=== PATIENT | male | born 1985 | race Two or more races ===

== ENCOUNTER 2019-12-07 15:45 | Inpatient (IN) | payer MEDICAID ==
[~2019-12-07] VITALS: Ht 175.3 cm; Wt 100.8 kg
[~2019-12-07 15:45] MED LIST: CALCITROL PO; CARV3 PO; CINA30 PO; CLON-592 PO; DOCU250C21 PO; DOXY150T5 PO; ERGO50CA PO; LEVO50 PO; OMEP20 PO; ONDA-104 PO; RISP3TAB13 PO; SERT100T12 PO; SUCR500T PO; TRAZ-257 PO
[2019-12-07] MEDS ORDERED: QUET25TA PO (18:38)
[2019-12-07] MEDS ORDERED: RISP0.5T20 PO (18:38)
[2019-12-07] MEDS ORDERED: CLON-592 PO (18:38)
[2019-12-07 18:41] LABS: BASOPHILS % (AUTO) 0.4 % (0.0-2.0); EOSINOPHILS % (AUTO) 1.2 % (1.0-6.0); HEMATOCRIT 31.4 % (41-53); HEMOGLOBIN 10.5 g/dL (13.5-17.5); LYMPHOCYTES # (AUTO) 1.3 K/uL (1.0-4.8); LYMPHOCYTES % (AUTO) 23.2 % (22.0-44.0); MEAN CORPUSCULAR HEMOGLOBIN 37.4 pg (26.0-34.0); MEAN CORPUSCULAR HGB CONC 33.4 G/dL (31.0-37.0); MEAN CORPUSCULAR VOLUME 112 fL (80-100); MONOCYTES # (AUTO) 0.6 K/uL (0.1-1.0); MONOCYTES % (AUTO) 10.4 % (2.0-9.0); NEUTROPHILS # (AUTO) 3.6 K/uL (1.8-7.7); NEUTROPHILS % (AUTO) 64.8 % (40.0-70.0); PLATELET COUNT (AUTO) 214 K/uL (150-450); RED BLOOD CELL COUNT(AUTO) 2.79 MIL/uL (4.50-5.90); RED CELL DISTRIBUTION WIDTH 17.9 % (11.5-14.5)
[2019-12-07 19:34] LABS: COVID AG,FIA SOURCE NASOPHARYNGEAL
[2019-12-07 19:50] LABS: ANION GAP 11 mmol/L (8-16); CALCIUM, TOTAL 10.2 mg/dL (8.8-10.5); CARBON DIOXIDE 31 mmol/L (22-29); CHLORIDE 102 mmol/L (98-107); CREATININE 10.56 mg/dL (0.60-1.30); GLOMERULAR FILTR. RATE CALC 6 mL/min (>60); GLUCOSE,RANDOM 99 mg/dL (70-110); POTASSIUM 4.8 mmol/L (3.5-5.1); SODIUM SERUM 144 mmol/L (136-145); UREA NITROGEN, BLOOD 37 mg/dL (7-18)
[2019-12-07 19:58] LABS: ALANINE AMINOTRANSFERASE 44 U/L (12-78); ALKALINE PHOSPHATASE 116 U/L (46-116); ASPARTATE AMINOTRANSFERASE 29 U/L (15-37); BILIRUBIN,TOTAL 0.4 mg/dL (0.1-1.0)
[2019-12-07] MEDS ORDERED: QUEtiapine FUMARATE 100 MG TABLET PO PRN (22:00)
[2019-12-07] MEDS ORDERED: GuaiFENesin/D-METHORPHAN [SUGAR-FREE] 200-20MG/10 ML SYRUP UDCUP PO PRN (22:00)
[2019-12-07] MEDS ORDERED: MAGNESIUM HYDROXIDE SUSPENSION 30 ML UDCUP PO PRN (22:00)
[2019-12-07] MEDS ORDERED: LOPERAMIDE HCL 2 MG CAPSULE PO PRN (22:00)
[2019-12-07] MEDS ORDERED: TUBERCULIN, PURIFIED PROTEIN DERIVATIVE 5 TU/0.1 ML SYRINGE ID ONE (22:00)
[2019-12-07] MEDS ORDERED: ACETAMINOPHEN 325 MG TABLET PO PRN (22:00)
[2019-12-07] MEDS ORDERED: HydrOXYzine PAMOATE 50 MG CAPSULE PO PRN (22:00)
[2019-12-07] MEDS ORDERED: MAG HYDROX/AL HYDROX/SIMETH ES 30 ML SUSPENSION UDCUP PO PRN (22:00)
[2019-12-07] MEDS ORDERED: PROMETHAZINE HCL 25 MG TABLET PO PRN (22:00)
[2019-12-07] MEDS ORDERED: ZOLPIDEM TARTRATE 10 MG TABLET PO PRN (22:00)
[2019-12-07] MEDS ORDERED: LORazepam 2 MG TABLET PO PRN (22:00)
[2019-12-08 01:49] VITALS: BP 146/98
[2019-12-08 07:27] LABS: CHOL/HDL RATIO 6.8 (4.2-7.3); CHOLESTEROL 225 mg/dL (131-200); FREE T4 (FREE THYROXINE) 0.92 ng/dL (0.76-1.46); HDL CHOLESTEROL 33 mg/dL (40-60); THYROID STIMULATING HORMONE 1.44 uIU/mL (0.36-3.74); TRIGLYCERIDES 425 mg/dL (15-150)
[2019-12-08 07:43] LABS: HEMOGLOBIN A1C 5.9 % (3.8-5.6)
[2019-12-08 08:00] VITALS: BP 149/81
[2019-12-08] MEDS: OMEGA-3/DHA/EPA/FISH OIL 1,000 MG CAPSULE PO SCH (10:00)
[2019-12-08] MEDS: FLUoxetine HCL 20 MG CAPSULE PO SCH (10:00)
[2019-12-08] MEDS: MULTIVITAMINS WITH MINERALS, THERAPEUTIC TABLET PO SCH (10:00)
[2019-12-08] MEDS: FOLIC ACID 1 MG TABLET PO SCH (10:00)
[2019-12-08] MEDS: THIAMINE 100 MG TABLET PO SCH ×2 (10:01→16:44)
[2019-12-08] MEDS: SEVELAMER CARBONATE 800 MG TABLET PO SCH ×2 (12:32→16:43)
[2019-12-08 16:51] VITALS: BP 150/85
[2019-12-08] MEDS: QUEtiapine FUMARATE 100 MG TABLET PO SCH (22:06)
[2019-12-09] MEDS: CINACALCET HCL 30 MG TABLET PO SCH (07:13)
[2019-12-09] MEDS: SEVELAMER CARBONATE 800 MG TABLET PO SCH ×3 (07:13→17:36)
[2019-12-09] MEDS: MULTIVITAMINS WITH MINERALS, THERAPEUTIC TABLET PO SCH (07:46)
[2019-12-09] MEDS: FOLIC ACID 1 MG TABLET PO SCH (07:46)
[2019-12-09] MEDS: THIAMINE 100 MG TABLET PO SCH ×2 (07:46→17:36)
[2019-12-09] MEDS: OMEGA-3/DHA/EPA/FISH OIL 1,000 MG CAPSULE PO SCH (07:46)
[2019-12-09] MEDS: FLUoxetine HCL 20 MG CAPSULE PO SCH (07:46)
[2019-12-09 08:00] VITALS: BP 148/86
[2019-12-09 16:51] VITALS: BP 138/82
[2019-12-09] MEDS: QUEtiapine FUMARATE 100 MG TABLET PO SCH (20:08)
[2019-12-09] MEDS: QUEtiapine FUMARATE 200 MG TABLET PO SCH (20:59)
[2019-12-10] MEDS: CINACALCET HCL 30 MG TABLET PO SCH (06:57)
[2019-12-10] MEDS: SEVELAMER CARBONATE 800 MG TABLET PO SCH ×4 (06:57→21:48)
[2019-12-10 08:00] VITALS: BP 152/98
[2019-12-10] MEDS: OMEGA-3/DHA/EPA/FISH OIL 1,000 MG CAPSULE PO SCH (08:38)
[2019-12-10] MEDS: MULTIVITAMINS WITH MINERALS, THERAPEUTIC TABLET PO SCH (08:38)
[2019-12-10] MEDS: FLUoxetine HCL 20 MG CAPSULE PO SCH (08:38)
[2019-12-10] MEDS: FOLIC ACID 1 MG TABLET PO SCH (08:38)
[2019-12-10] MEDS: THIAMINE 100 MG TABLET PO SCH ×3 (08:38→21:49)
[2019-12-10] MEDS ORDERED: FLUO-191 PO (08:49)
[2019-12-10] MEDS ORDERED: CINA30 PO (08:57)
[2019-12-10] MEDS ORDERED: FOLI-130 PO (08:58)
[2019-12-10] MEDS ORDERED: MULT-248 PO (08:59)
[2019-12-10] MEDS ORDERED: SEVE0.8P6 PO (09:00)
[2019-12-10] MEDS ORDERED: EPOETIN ALFA 10,000 UNITS/ML 2 ML VIAL SQ SCH (09:00)
[2019-12-10] MEDS ORDERED: THIA100T80 PO (09:01)
[2019-12-10] MEDS ORDERED: OMEG-135 PO (09:16)
[2019-12-10] MEDS ORDERED: EPOE20002 SQ (09:21)
[2019-12-10 16:00] VITALS: BP 142/87
[2019-12-10] MEDS: QUEtiapine FUMARATE 200 MG TABLET PO SCH (21:49)
== END 2019-12-10 22:43 | disposition home or self-care (01) | DRG 751 ==
LOC: EMS 15:45 → 3EC 21:47
PROVIDERS: ADMIT Psychiatry & Neurology Psychiatry; ATTEND Psychiatry & Neurology Psychiatry
DX: F33.2 Major depressive disorder, recurrent severe without psychotic features (principal); D53.9 Nutritional anemia, unspecified; D63.1 Anemia in chronic kidney disease; E03.9 Hypothyroidism, unspecified; E78.5 Hyperlipidemia, unspecified; G47.33 Obstructive sleep apnea (adult) (pediatric); N18.6 End stage renal disease; R45.851 Suicidal ideations; F20.9 Schizophrenia, unspecified; E21.3 Hyperparathyroidism, unspecified; Z99.2 Dependence on renal dialysis; Z63.9 Problem related to primary support group, unspecified; Z65.3 Problems related to other legal circumstances; Z55.9 Problems related to education and literacy, unspecified
CPT/HCPCS: 83036; 84439; 84443; 86592; 87081; 87340; 87426; G0480; J0885

== ENCOUNTER 2022-01-01 19:41 | Inpatient (IN) | payer MEDICAID ==
[~2022-01-01] VITALS: Ht 177.8 cm; Wt 94.0 kg
[~2022-01-01 19:41] MED LIST changes: +DOCU-378 PO; -DOCU250C21 PO; +FLUO-177 PO; +FOLI-130 PO; +MULT-248 PO; +OMEG-135 PO; +QUET25TA PO; -RISP3TAB13 PO; +RISP3TAB63 PO; +SERT-162 PO; -SERT100T12 PO; +SEVE0.8P6 PO; +THIA100T80 PO
[2022-01-01 21:16] LABS: BASOPHILS % (AUTO) 0.2 % (0.0-2.0); EOSINOPHILS % (AUTO) 0.2 % (1.0-6.0); HEMOGLOBIN 13.4 g/dL (13.5-17.5); LYMPHOCYTES % (AUTO) 10.2 % (22.0-44.0); MEAN CORPUSCULAR HEMOGLOBIN 29.4 pg (26.0-34.0); MEAN CORPUSCULAR HGB CONC 32.7 G/dL (31.0-37.0); MEAN CORPUSCULAR VOLUME 90 fL (80-100); MONOCYTES % (AUTO) 9.8 % (2.0-9.0); NEUTROPHILS # (AUTO) 7.8 K/uL (1.8-7.7); NEUTROPHILS % (AUTO) 79.6 % (40.0-70.0); PLATELET COUNT (AUTO) 220 K/uL (150-450); RED BLOOD CELL COUNT(AUTO) 4.56 MIL/uL (4.50-5.90); RED CELL DISTRIBUTION WIDTH 13.7 % (11.5-14.5)
[2022-01-01 21:26] LABS: ANION GAP 12 mmol/L (8-16); CARBON DIOXIDE 22 mmol/L (22-29); CHLORIDE 105 mmol/L (98-107); CREATININE 1.61 mg/dL (0.60-1.30); GLOMERULAR FILTR. RATE CALC 49 mL/min (>60); GLUCOSE,RANDOM 116 mg/dL (70-110); SODIUM SERUM 139 mmol/L (136-145); UREA NITROGEN, BLOOD 19 mg/dL (7-18)
[2022-01-01 21:33] LABS: ALANINE AMINOTRANSFERASE 28 U/L (12-78); ALBUMIN 4.5 g/dL (3.4-5.0); ALKALINE PHOSPHATASE 104 U/L (46-116); ASPARTATE AMINOTRANSFERASE 17 U/L (15-37); BILIRUBIN,TOTAL 0.4 mg/dL (0.1-1.0); TOTAL PROTEIN, SERUM 7.9 g/dL (6.4-8.2)
[2022-01-01 22:52] LABS: THYROID STIMULATING HORMONE 2.35 uIU/mL (0.36-3.74)
[2022-01-01 23:19] LABS: COVID AG,FIA SOURCE NASOPHARYNGEAL
[2022-01-01 23:22] LABS: AMPHET/METH SCREEN,URINE NEGATIVE (NEGATIVE); BARBITURATE SCREEN, URINE NEGATIVE (NEGATIVE); BENZODIAZEPINES SCREEN,URINE NEGATIVE (NEGATIVE); CANNABINOID SCREEN,URINE NEGATIVE (NEGATIVE); COCAINE SCREEN,URINE NEGATIVE (NEGATIVE); METHADONE SCREEN, URINE NEGATIVE (NEGATIVE); OPIATE SCREEN,URINE NEGATIVE (NEGATIVE)
[2022-01-01 23:23] LABS: PHENCYCLIDINE SCREEN,URINE NEGATIVE (NEGATIVE)
[2022-01-02] MEDS ORDERED: QUEtiapine FUMARATE 100 MG TABLET PO PRN (01:45)
[2022-01-02] MEDS ORDERED: ZOLPIDEM TARTRATE 10 MG TABLET PO PRN (01:45)
[2022-01-02 02:39] VITALS: BP 138/94
[2022-01-02] MEDS ORDERED: INFLUENZA VIRUS VACCINE QVS 2022-23 (6MO+)/PF 60 MCG/0.5 ML SYRINGE IM. ONE (04:15)
[2022-01-02] MEDS: LORazepam 2 MG TABLET PO PRN (08:07)
[2022-01-02] MEDS ORDERED: HALOPERIDOL LACTATE 5 MG/ML VIAL ONE (08:17)
[2022-01-02] MEDS ORDERED: DiphenhydrAMINE HCL 50 MG/ML VIAL ONE (08:17)
[2022-01-02 08:18] VITALS: BP 145/81
[2022-01-02] MEDS ORDERED: DiphenhydrAMINE HCL 50 MG/ML VIAL IM ONE (08:30)
[2022-01-02] MEDS ORDERED: HALOPERIDOL LACTATE 5 MG/ML VIAL IM ONE (08:30)
[2022-01-02] MEDS: DOCUSATE SODIUM 250 MG CAPSULE PO SCH (09:00)
[2022-01-02] MEDS: OMEPRAZOLE 20 MG CAPSULE PO SCH (09:00)
[2022-01-02] MEDS: CARVEDILOL 3.125 MG TABLET PO SCH (09:00)
[2022-01-02] MEDS ORDERED: FOLIC ACID 1 MG TABLET PO SCH (09:00)
[2022-01-02] MEDS ORDERED: THIAMINE 100 MG TABLET PO SCH (09:00)
[2022-01-02] MEDS ORDERED: TUBERCULIN, PURIFIED PROTEIN DERIVATIVE 5 TU/0.1 ML SYRINGE ID ONE (11:45)
[2022-01-02] MEDS ORDERED: PROMETHAZINE HCL 25 MG TABLET PO PRN (11:45)
[2022-01-02] MEDS ORDERED: MAG HYDROX/AL HYDROX/SIMETH ES 30 ML SUSPENSION UDCUP PO PRN (11:45)
[2022-01-02] MEDS ORDERED: MAGNESIUM HYDROXIDE SUSPENSION 30 ML UDCUP PO PRN (11:45)
[2022-01-02] MEDS ORDERED: LURASIDONE HCL 20 MG TABLET PO PRN (11:45)
[2022-01-02] MEDS ORDERED: LOPERAMIDE HCL 2 MG CAPSULE PO PRN (11:45)
[2022-01-02] MEDS ORDERED: HydrOXYzine PAMOATE 50 MG CAPSULE PO PRN (11:45)
[2022-01-02 13:40] VITALS: BP 129/75
[2022-01-02] MEDS: SEVELAMER CARBONATE 800 MG POWDER PACKET PO SCH ×2 (13:59→17:03)
[2022-01-02 16:05] VITALS: BP 143/79
[2022-01-02] MEDS ORDERED: RisperiDONE 1 MG TABLET PO PRN (16:45)
[2022-01-02] MEDS: THIAMINE 100 MG TABLET PO SCH (17:03)
[2022-01-02] MEDS ORDERED: SERTRALINE HCL 100 MG TABLET PO ONE (18:00)
[2022-01-02] MEDS ORDERED: GLUCAGON,HUMAN RECOMBINANT 1 MG VIAL IM PRN (20:45)
[2022-01-02] MEDS ORDERED: SERTRALINE HCL 50 MG TABLET PO SCH (21:00)
[2022-01-02] MEDS ORDERED: RisperiDONE 4 MG TABLET PO SCH (21:00)
[2022-01-02] MEDS ORDERED: TACROLIMUS 5 MG CAPSULE PO SCH (21:00)
[2022-01-02] MEDS: MELATONIN 5 MG TABLET PO SCH (21:05)
[2022-01-02] MEDS: PredniSONE 5 MG TABLET PO SCH (21:25)
[2022-01-02] MEDS: MYCOPHENOLATE MOFETIL 250 MG CAPSULE PO SCH (21:25)
[2022-01-02] MEDS: ATORVASTATIN CALCIUM 40 MG TABLET PO SCH (21:25)
[2022-01-02 21:56] LABS: GLUCOMETER DEV NAME(LOC) 3E.C; GLUCOSE,POINT OF CARE 95 MG/DL (70-110)
[2022-01-03] MEDS ORDERED: LEVOTHYROXINE SODIUM 50 MCG TABLET PO SCH (06:30)
[2022-01-03 06:51] LABS: GLUCOMETER DEV NAME(LOC) 3E.C; GLUCOSE,POINT OF CARE 116 MG/DL (70-110)
[2022-01-03] MEDS ORDERED: CINACALCET HCL 30 MG TABLET PO SCH (07:00)
[2022-01-03 07:38] LABS: HEMOGLOBIN A1C 6.1 % (3.8-5.6)
[2022-01-03 08:00] VITALS: BP 104/59
[2022-01-03 08:09] LABS: CHOL/HDL RATIO 4.6 (4.2-7.3); FREE T4 (FREE THYROXINE) 1.04 ng/dL (0.76-1.46); THYROID STIMULATING HORMONE 1.25 uIU/mL (0.36-3.74)
[2022-01-03] MEDS: FOLIC ACID 1 MG TABLET PO SCH (08:54)
[2022-01-03] MEDS: THIAMINE 100 MG TABLET PO SCH ×2 (08:54→16:50)
[2022-01-03] MEDS: MULTIVITAMINS WITH MINERALS, THERAPEUTIC TABLET PO SCH (08:54)
[2022-01-03] MEDS: OMEPRAZOLE 20 MG CAPSULE PO SCH (08:56)
[2022-01-03] MEDS: SERTRALINE HCL 100 MG TABLET PO SCH (08:56)
[2022-01-03] MEDS: OMEGA-3/DHA/EPA/FISH OIL 1,000 MG CAPSULE PO SCH (08:56)
[2022-01-03] MEDS: PredniSONE 5 MG TABLET PO SCH (08:58)
[2022-01-03] MEDS: MYCOPHENOLATE MOFETIL 250 MG CAPSULE PO SCH ×2 (09:00→16:50)
[2022-01-03] MEDS ORDERED: TACROLIMUS 5 MG CAPSULE PO SCH (09:00)
[2022-01-03] MEDS: DOCUSATE SODIUM 250 MG CAPSULE PO SCH (09:00)
[2022-01-03] MEDS: CARVEDILOL 3.125 MG TABLET PO SCH (10:45)
[2022-01-03] MEDS: TACROLIMUS 1 MG CAPSULE PO SCH ×2 (10:46→16:50)
[2022-01-03 15:02] LABS: GLUCOMETER DEV NAME(LOC) 3E.C; GLUCOSE,POINT OF CARE 155 MG/DL (70-110)
[2022-01-03 16:00] VITALS: BP 115/69
[2022-01-03] MEDS ORDERED: TACROLIMUS 1 MG CAPSULE PO SCH (17:00)
[2022-01-03] MEDS: INSULIN LISPRO 100 UNITS/ML SQ PRN ×2 (17:04→20:59)
[2022-01-03 17:06] LABS: GLUCOMETER DEV NAME(LOC) 3E.C; GLUCOSE,POINT OF CARE 165 MG/DL (70-110)
[2022-01-03] MEDS: CINACALCET HCL 30 MG TABLET PO SCH (18:24)
[2022-01-03 20:25] LABS: GLUCOMETER DEV NAME(LOC) 3E.C; GLUCOSE,POINT OF CARE 141 MG/DL (70-110)
[2022-01-03] MEDS: MELATONIN 5 MG TABLET PO SCH (20:53)
[2022-01-03] MEDS: ATORVASTATIN CALCIUM 40 MG TABLET PO SCH (20:53)
[2022-01-03] MEDS: RisperiDONE 3 MG TABLET PO SCH (20:53)
[2022-01-03] MEDS: ACETAMINOPHEN 325 MG TABLET PO PRN (21:05)
[2022-01-03 21:11] VITALS: BP 128/80
[2022-01-03 21:44] VITALS: BP 128/80
[2022-01-04] MEDS: GuaiFENesin/D-METHORPHAN [SUGAR-FREE] 200-20MG/10 ML SYRUP UDCUP PO PRN ×3 (03:38→16:38)
[2022-01-04 06:06] LABS: HEPATITIS C AB (EIA) <0.1 s/co ratio (0.0-0.9)
[2022-01-04 06:46] LABS: GLUCOMETER DEV NAME(LOC) 3E.C; GLUCOSE,POINT OF CARE 128 MG/DL (70-110)
[2022-01-04] MEDS: CINACALCET HCL 30 MG TABLET PO SCH (06:54)
[2022-01-04 07:37] LABS: CALCIUM, TOTAL 10.1 mg/dL (8.8-10.5); CREATININE 1.4 mg/dL (0.60-1.30); PHOSPHORUS 2.9 mg/dL (2.5-4.9); POTASSIUM 4.5 mmol/L (3.5-5.1)
[2022-01-04 08:00] VITALS: BP 122/70
[2022-01-04] MEDS: SERTRALINE HCL 100 MG TABLET PO SCH (08:34)
[2022-01-04] MEDS: THIAMINE 100 MG TABLET PO SCH ×2 (08:34→16:23)
[2022-01-04] MEDS: CARVEDILOL 3.125 MG TABLET PO SCH (08:34)
[2022-01-04] MEDS: PredniSONE 5 MG TABLET PO SCH (08:34)
[2022-01-04] MEDS: FOLIC ACID 1 MG TABLET PO SCH (08:34)
[2022-01-04] MEDS: OMEGA-3/DHA/EPA/FISH OIL 1,000 MG CAPSULE PO SCH (08:34)
[2022-01-04] MEDS: MULTIVITAMINS WITH MINERALS, THERAPEUTIC TABLET PO SCH (08:34)
[2022-01-04] MEDS: OMEPRAZOLE 20 MG CAPSULE PO SCH (08:34)
[2022-01-04] MEDS: MYCOPHENOLATE MOFETIL 250 MG CAPSULE PO SCH ×2 (08:35→16:24)
[2022-01-04] MEDS: DOCUSATE SODIUM 250 MG CAPSULE PO SCH (08:36)
[2022-01-04] MEDS: TACROLIMUS 1 MG CAPSULE PO SCH ×2 (08:40→16:20)
[2022-01-04 11:46] LABS: GLUCOMETER DEV NAME(LOC) 3E.C; GLUCOSE,POINT OF CARE 193 MG/DL (70-110)
[2022-01-04] MEDS: INSULIN LISPRO 100 UNITS/ML SQ PRN ×3 (11:56→20:11)
[2022-01-04] MEDS ORDERED: SERT-440 PO (13:28)
[2022-01-04] MEDS ORDERED: MELA5TAB40 PO (13:28)
[2022-01-04] MEDS ORDERED: RISP3TAB63 PO (13:28)
[2022-01-04] MEDS ORDERED: OMEG-135 PO (13:28)
[2022-01-04 16:00] VITALS: BP 122/71
[2022-01-04 18:33] LABS: COVID AG,FIA SOURCE NASOPHARYNGEAL
[2022-01-04 18:36] LABS: GLUCOMETER DEV NAME(LOC) 3E.C; GLUCOSE,POINT OF CARE 143 MG/DL (70-110)
[2022-01-04] MEDS: RisperiDONE 3 MG TABLET PO SCH (20:11)
[2022-01-04] MEDS: MELATONIN 5 MG TABLET PO SCH (20:11)
[2022-01-04] MEDS: ATORVASTATIN CALCIUM 40 MG TABLET PO SCH (20:11)
[2022-01-04 20:16] LABS: GLUCOMETER DEV NAME(LOC) 3E.C; GLUCOSE,POINT OF CARE 168 MG/DL (70-110)
[2022-01-05] MEDS: GuaiFENesin/D-METHORPHAN [SUGAR-FREE] 200-20MG/10 ML SYRUP UDCUP PO PRN (06:28)
[2022-01-05] MEDS: CINACALCET HCL 30 MG TABLET PO SCH (06:40)
[2022-01-05 06:41] LABS: GLUCOMETER DEV NAME(LOC) 3E.C; GLUCOSE,POINT OF CARE 125 MG/DL (70-110)
[2022-01-05] MEDS: MetFORMIN HCL 500 MG TABLET PO SCH (07:39)
[2022-01-05] MEDS: OMEPRAZOLE 20 MG CAPSULE PO SCH (08:25)
[2022-01-05] MEDS: SERTRALINE HCL 100 MG TABLET PO SCH (08:25)
[2022-01-05] MEDS: FOLIC ACID 1 MG TABLET PO SCH (08:25)
[2022-01-05] MEDS: OMEGA-3/DHA/EPA/FISH OIL 1,000 MG CAPSULE PO SCH (08:25)
[2022-01-05] MEDS: DOCUSATE SODIUM 250 MG CAPSULE PO SCH (08:25)
[2022-01-05] MEDS: MYCOPHENOLATE MOFETIL 250 MG CAPSULE PO SCH ×2 (08:25→17:01)
[2022-01-05] MEDS: THIAMINE 100 MG TABLET PO SCH ×2 (08:25→17:01)
[2022-01-05] MEDS: MULTIVITAMINS WITH MINERALS, THERAPEUTIC TABLET PO SCH (08:25)
[2022-01-05] MEDS: PredniSONE 5 MG TABLET PO SCH (08:26)
[2022-01-05] MEDS: CARVEDILOL 3.125 MG TABLET PO SCH (08:26)
[2022-01-05] MEDS: TACROLIMUS 1 MG CAPSULE PO SCH ×2 (08:26→17:01)
[2022-01-05 08:28] LABS: APPEARANCE,URINE CLEAR (CLEAR); BILIRUBIN,URINE NEGATIVE (NEGATIVE); GLUCOSE, URINE (UA) NEGATIVE (NEGATIVE); KETONES,URINE NEGATIVE (NEGATIVE); LEUKOCYTE ESTERASE ,URINE NEGATIVE (NEGATIVE); NITRATE,URINE NEGATIVE (NEGATIVE); OCCULT BLOOD,URINE NEGATIVE (NEGATIVE); PH,URINE 5.5 (5.0-8.0); PROTEIN,URINE NEGATIVE (NEGATIVE); SPECIFIC GRAVITIY, URINE 1.009 (1.003-1.030); UROBILINOGEN,URINE <=1.0 mg/dL (<=1.0)
[2022-01-05 09:51] VITALS: BP 124/72
[2022-01-05 11:26] LABS: GLUCOMETER DEV NAME(LOC) 3E.C; GLUCOSE,POINT OF CARE 116 MG/DL (70-110)
[2022-01-05 16:18] VITALS: BP 141/86
[2022-01-05 17:06] LABS: GLUCOMETER DEV NAME(LOC) 3E.C; GLUCOSE,POINT OF CARE 140 MG/DL (70-110)
[2022-01-05] MEDS ORDERED: CALC0.2521 PO (18:28)
[2022-01-05] MEDS: ATORVASTATIN CALCIUM 40 MG TABLET PO SCH (21:00)
[2022-01-05] MEDS: MELATONIN 5 MG TABLET PO SCH (21:00)
[2022-01-05] MEDS: OLANZapine 5 MG RAPDIS TABLET PO SCH (21:00)
[2022-01-05] MEDS: INSULIN LISPRO 100 UNITS/ML SQ PRN (21:03)
[2022-01-06 05:06] LABS: GLUCOMETER DEV NAME(LOC) 3E.C; GLUCOSE,POINT OF CARE 165 MG/DL (70-110)
[2022-01-06 06:42] LABS: GLUCOMETER DEV NAME(LOC) 3E.C; GLUCOSE,POINT OF CARE 107 MG/DL (70-110)
[2022-01-06] MEDS: MetFORMIN HCL 500 MG TABLET PO SCH (06:59)
[2022-01-06] MEDS: CINACALCET HCL 30 MG TABLET PO SCH (06:59)
[2022-01-06 07:04] LABS: BASOPHILS % (AUTO) 0.3 % (0.0-2.0); HEMATOCRIT 34.6 % (41-53); HEMOGLOBIN 11.4 g/dL (13.5-17.5); LYMPHOCYTES # (AUTO) 0.8 K/uL (1.0-4.8); LYMPHOCYTES % (AUTO) 17.8 % (22.0-44.0); MEAN CORPUSCULAR HEMOGLOBIN 29.7 pg (26.0-34.0); MEAN CORPUSCULAR HGB CONC 32.8 G/dL (31.0-37.0); MEAN CORPUSCULAR VOLUME 91 fL (80-100); MONOCYTES # (AUTO) 0.8 K/uL (0.1-1.0); NEUTROPHILS # (AUTO) 2.7 K/uL (1.8-7.7); NEUTROPHILS % (AUTO) 60.9 % (40.0-70.0); PLATELET COUNT (AUTO) 157 K/uL (150-450); RED BLOOD CELL COUNT(AUTO) 3.83 MIL/uL (4.50-5.90); RED CELL DISTRIBUTION WIDTH 13.6 % (11.5-14.5)
[2022-01-06 07:07] LABS: ANION GAP 6 mmol/L (8-16); CALCIUM, TOTAL 10.1 mg/dL (8.8-10.5); CARBON DIOXIDE 27 mmol/L (22-29); CHLORIDE 109 mmol/L (98-107); CREATININE 1.29 mg/dL (0.60-1.30); GLOMERULAR FILTR. RATE CALC > 60 mL/min (>60); GLUCOSE,RANDOM 112 mg/dL (70-110); POTASSIUM 4.6 mmol/L (3.5-5.1); SODIUM SERUM 142 mmol/L (136-145); UREA NITROGEN, BLOOD 13 mg/dL (7-18)
[2022-01-06 07:13] LABS: MAGNESIUM 1.7 mg/dL (1.80-2.40); PHOSPHORUS 3.8 mg/dL (2.5-4.9)
[2022-01-06] MEDS: GuaiFENesin/D-METHORPHAN [SUGAR-FREE] 200-20MG/10 ML SYRUP UDCUP PO PRN (07:59)
[2022-01-06] MEDS: MYCOPHENOLATE MOFETIL 250 MG CAPSULE PO SCH ×2 (08:36→16:14)
[2022-01-06] MEDS: CARVEDILOL 3.125 MG TABLET PO SCH (08:36)
[2022-01-06] MEDS: PredniSONE 5 MG TABLET PO SCH (08:36)
[2022-01-06] MEDS: TACROLIMUS 1 MG CAPSULE PO SCH ×2 (08:36→16:15)
[2022-01-06 08:38] VITALS: BP 158/91
[2022-01-06] MEDS: MULTIVITAMINS WITH MINERALS, THERAPEUTIC TABLET PO SCH (08:39)
[2022-01-06] MEDS: SERTRALINE HCL 100 MG TABLET PO SCH (08:39)
[2022-01-06] MEDS: DOCUSATE SODIUM 250 MG CAPSULE PO SCH (08:39)
[2022-01-06] MEDS: OMEPRAZOLE 20 MG CAPSULE PO SCH (08:39)
[2022-01-06] MEDS: THIAMINE 100 MG TABLET PO SCH ×2 (08:39→16:14)
[2022-01-06] MEDS: OMEGA-3/DHA/EPA/FISH OIL 1,000 MG CAPSULE PO SCH (08:39)
[2022-01-06] MEDS: FOLIC ACID 1 MG TABLET PO SCH (08:39)
[2022-01-06] MEDS ORDERED: MAGNESIUM OXIDE 400 MG TABLET PO ONE (10:00)
[2022-01-06 11:31] LABS: GLUCOMETER DEV NAME(LOC) 3E.C; GLUCOSE,POINT OF CARE 120 MG/DL (70-110)
[2022-01-06] MEDS: ACETAMINOPHEN 325 MG TABLET PO PRN (14:01)
[2022-01-06 16:06] LABS: GLUCOMETER DEV NAME(LOC) 3E.C; GLUCOSE,POINT OF CARE 130 MG/DL (70-110)
[2022-01-06 16:41] VITALS: BP 116/74
[2022-01-06 20:25] LABS: GLUCOMETER DEV NAME(LOC) 3E.C; GLUCOSE,POINT OF CARE 158 MG/DL (70-110)
[2022-01-06] MEDS: ATORVASTATIN CALCIUM 40 MG TABLET PO SCH (20:32)
[2022-01-06] MEDS: MELATONIN 5 MG TABLET PO SCH (20:32)
[2022-01-06] MEDS: OLANZapine 5 MG RAPDIS TABLET PO SCH (20:34)
[2022-01-06] MEDS: INSULIN LISPRO 100 UNITS/ML SQ PRN (21:17)
[2022-01-07] MEDS: INSULIN LISPRO 100 UNITS/ML SQ PRN ×3 (06:32→17:49)
[2022-01-07 06:41] LABS: GLUCOMETER DEV NAME(LOC) 3E.C; GLUCOSE,POINT OF CARE 105 MG/DL (70-110)
[2022-01-07] MEDS: MetFORMIN HCL 500 MG TABLET PO SCH (06:52)
[2022-01-07] MEDS: CINACALCET HCL 30 MG TABLET PO SCH (06:52)
[2022-01-07 08:00] VITALS: BP 133/78
[2022-01-07] MEDS: DOCUSATE SODIUM 250 MG CAPSULE PO SCH (08:23)
[2022-01-07] MEDS: OMEGA-3/DHA/EPA/FISH OIL 1,000 MG CAPSULE PO SCH (08:23)
[2022-01-07] MEDS: OMEPRAZOLE 20 MG CAPSULE PO SCH (08:23)
[2022-01-07] MEDS: MULTIVITAMINS WITH MINERALS, THERAPEUTIC TABLET PO SCH (08:23)
[2022-01-07] MEDS: SERTRALINE HCL 100 MG TABLET PO SCH (08:23)
[2022-01-07] MEDS: FOLIC ACID 1 MG TABLET PO SCH (08:23)
[2022-01-07] MEDS: THIAMINE 100 MG TABLET PO SCH ×2 (08:23→17:17)
[2022-01-07] MEDS: MYCOPHENOLATE MOFETIL 250 MG CAPSULE PO SCH ×2 (08:24→17:18)
[2022-01-07] MEDS: TACROLIMUS 1 MG CAPSULE PO SCH ×2 (08:24→17:18)
[2022-01-07] MEDS: PredniSONE 5 MG TABLET PO SCH (08:24)
[2022-01-07] MEDS: CARVEDILOL 3.125 MG TABLET PO SCH (08:25)
[2022-01-07] MEDS: LORazepam 2 MG TABLET PO PRN (11:14)
[2022-01-07] MEDS: OLANZapine 5 MG RAPDIS TABLET PO PRN (11:14)
[2022-01-07 11:57] LABS: GLUCOMETER DEV NAME(LOC) 3E.C; GLUCOSE,POINT OF CARE 176 MG/DL (70-110)
[2022-01-07 16:00] VITALS: BP 108/69
[2022-01-07 18:01] LABS: GLUCOMETER DEV NAME(LOC) 3E.C; GLUCOSE,POINT OF CARE 142 MG/DL (70-110)
[2022-01-07] MEDS: GuaiFENesin/D-METHORPHAN [SUGAR-FREE] 200-20MG/10 ML SYRUP UDCUP PO PRN (18:43)
[2022-01-07] MEDS: MELATONIN 5 MG TABLET PO SCH (20:06)
[2022-01-07] MEDS: ATORVASTATIN CALCIUM 40 MG TABLET PO SCH (20:06)
[2022-01-07] MEDS: OLANZapine 5 MG RAPDIS TABLET PO SCH (20:06)
[2022-01-07 21:36] LABS: GLUCOMETER DEV NAME(LOC) 3E.C; GLUCOSE,POINT OF CARE 134 MG/DL (70-110)
[2022-01-08] MEDS: CINACALCET HCL 30 MG TABLET PO SCH (06:49)
[2022-01-08 07:00] LABS: GLUCOMETER DEV NAME(LOC) 3E.C; GLUCOSE,POINT OF CARE 111 MG/DL (70-110)
[2022-01-08] MEDS: MetFORMIN HCL 500 MG TABLET PO SCH (07:05)
[2022-01-08 08:40] VITALS: BP 121/66
[2022-01-08] MEDS: SERTRALINE HCL 100 MG TABLET PO SCH (08:45)
[2022-01-08] MEDS: OLANZapine 5 MG RAPDIS TABLET PO PRN (08:45)
[2022-01-08] MEDS: FOLIC ACID 1 MG TABLET PO SCH (08:45)
[2022-01-08] MEDS: OMEPRAZOLE 20 MG CAPSULE PO SCH (08:45)
[2022-01-08] MEDS: THIAMINE 100 MG TABLET PO SCH ×2 (08:45→16:35)
[2022-01-08] MEDS: MULTIVITAMINS WITH MINERALS, THERAPEUTIC TABLET PO SCH (08:45)
[2022-01-08] MEDS: OMEGA-3/DHA/EPA/FISH OIL 1,000 MG CAPSULE PO SCH (08:45)
[2022-01-08] MEDS: DOCUSATE SODIUM 250 MG CAPSULE PO SCH (08:45)
[2022-01-08] MEDS: TACROLIMUS 1 MG CAPSULE PO SCH ×2 (08:46→16:35)
[2022-01-08] MEDS: MYCOPHENOLATE MOFETIL 250 MG CAPSULE PO SCH ×2 (08:46→16:35)
[2022-01-08] MEDS: PredniSONE 5 MG TABLET PO SCH (08:46)
[2022-01-08] MEDS: CARVEDILOL 3.125 MG TABLET PO SCH (08:46)
[2022-01-08 08:50] LABS: ANION GAP 11 mmol/L (8-16); CALCIUM, TOTAL 10.1 mg/dL (8.8-10.5); CARBON DIOXIDE 24 mmol/L (22-29); CHLORIDE 109 mmol/L (98-107); CREATININE 1.19 mg/dL (0.60-1.30); GLUCOSE,RANDOM 114 mg/dL (70-110); POTASSIUM 4.4 mmol/L (3.5-5.1); SODIUM SERUM 144 mmol/L (136-145); UREA NITROGEN, BLOOD 18 mg/dL (7-18)
[2022-01-08 08:51] LABS: GLOMERULAR FILTR. RATE CALC > 60 mL/min (>60)
[2022-01-08] MEDS: GuaiFENesin/D-METHORPHAN [SUGAR-FREE] 200-20MG/10 ML SYRUP UDCUP PO PRN (09:01)
[2022-01-08] MEDS: INSULIN LISPRO 100 UNITS/ML SQ PRN ×3 (11:33→20:37)
[2022-01-08 11:46] LABS: GLUCOMETER DEV NAME(LOC) 3E.C; GLUCOSE,POINT OF CARE 120 MG/DL (70-110)
[2022-01-08 16:18] VITALS: BP 113/72
[2022-01-08] MEDS: LORazepam 2 MG TABLET PO PRN (16:37)
[2022-01-08 16:50] LABS: GLUCOMETER DEV NAME(LOC) 3E.C; GLUCOSE,POINT OF CARE 198 MG/DL (70-110)
[2022-01-08] MEDS: MELATONIN 5 MG TABLET PO SCH (20:29)
[2022-01-08] MEDS: ATORVASTATIN CALCIUM 40 MG TABLET PO SCH (20:29)
[2022-01-08] MEDS: OLANZapine 10 MG RAPDIS TABLET PO SCH (20:33)
[2022-01-09 06:36] LABS: GLUCOMETER DEV NAME(LOC) 3E.C; GLUCOSE,POINT OF CARE 104 MG/DL (70-110)
[2022-01-09 06:36] LABS: GLUCOMETER DEV NAME(LOC) 3E.C; GLUCOSE,POINT OF CARE 140 MG/DL (70-110)
[2022-01-09] MEDS: INSULIN LISPRO 100 UNITS/ML SQ PRN ×4 (06:42→21:09)
[2022-01-09] MEDS: CINACALCET HCL 30 MG TABLET PO SCH (07:01)
[2022-01-09] MEDS: MetFORMIN HCL 500 MG TABLET PO SCH (07:01)
[2022-01-09 07:43] LABS: COVID AG,FIA SOURCE NASAL SWAB
[2022-01-09 08:27] VITALS: BP 118/73
[2022-01-09] MEDS: MULTIVITAMINS WITH MINERALS, THERAPEUTIC TABLET PO SCH (08:32)
[2022-01-09] MEDS: FOLIC ACID 1 MG TABLET PO SCH (08:33)
[2022-01-09] MEDS: SERTRALINE HCL 100 MG TABLET PO SCH (08:33)
[2022-01-09] MEDS: OMEPRAZOLE 20 MG CAPSULE PO SCH (08:33)
[2022-01-09] MEDS: OMEGA-3/DHA/EPA/FISH OIL 1,000 MG CAPSULE PO SCH (08:34)
[2022-01-09] MEDS: THIAMINE 100 MG TABLET PO SCH ×2 (08:34→16:40)
[2022-01-09] MEDS: TACROLIMUS 1 MG CAPSULE PO SCH ×2 (08:34→16:40)
[2022-01-09] MEDS: PredniSONE 5 MG TABLET PO SCH (08:34)
[2022-01-09] MEDS: CARVEDILOL 3.125 MG TABLET PO SCH (08:34)
[2022-01-09] MEDS: DOCUSATE SODIUM 250 MG CAPSULE PO SCH (08:34)
[2022-01-09] MEDS: LORazepam 2 MG TABLET PO PRN (08:34)
[2022-01-09] MEDS: MYCOPHENOLATE MOFETIL 250 MG CAPSULE PO SCH ×2 (08:34→16:40)
[2022-01-09] MEDS: OLANZapine 5 MG RAPDIS TABLET PO PRN (11:38)
[2022-01-09 11:46] LABS: GLUCOMETER DEV NAME(LOC) 3E.C; GLUCOSE,POINT OF CARE 170 MG/DL (70-110)
[2022-01-09 16:26] VITALS: BP 121/76
[2022-01-09 16:26] LABS: GLUCOMETER DEV NAME(LOC) 3E.C; GLUCOSE,POINT OF CARE 137 MG/DL (70-110)
[2022-01-09] MEDS: GuaiFENesin/D-METHORPHAN [SUGAR-FREE] 200-20MG/10 ML SYRUP UDCUP PO PRN (16:43)
[2022-01-09 20:26] LABS: GLUCOMETER DEV NAME(LOC) 3E.C; GLUCOSE,POINT OF CARE 225 MG/DL (70-110)
[2022-01-09] MEDS: ATORVASTATIN CALCIUM 40 MG TABLET PO SCH (20:55)
[2022-01-09] MEDS: DIVALPROEX SODIUM 500 MG ER TABLET PO SCH (20:55)
[2022-01-09] MEDS: MELATONIN 5 MG TABLET PO SCH (20:55)
[2022-01-09] MEDS: OLANZapine 10 MG RAPDIS TABLET PO SCH (20:55)
[2022-01-10 06:26] LABS: GLUCOMETER DEV NAME(LOC) 3E.C; GLUCOSE,POINT OF CARE 115 MG/DL (70-110)
[2022-01-10] MEDS: CINACALCET HCL 30 MG TABLET PO SCH (06:57)
[2022-01-10] MEDS: MetFORMIN HCL 500 MG TABLET PO SCH (06:57)
[2022-01-10] MEDS: OMEGA-3/DHA/EPA/FISH OIL 1,000 MG CAPSULE PO SCH (08:42)
[2022-01-10] MEDS: TACROLIMUS 1 MG CAPSULE PO SCH ×2 (08:42→17:08)
[2022-01-10] MEDS: MYCOPHENOLATE MOFETIL 250 MG CAPSULE PO SCH ×2 (08:42→17:08)
[2022-01-10] MEDS: CARVEDILOL 3.125 MG TABLET PO SCH (08:43)
[2022-01-10] MEDS: DOCUSATE SODIUM 250 MG CAPSULE PO SCH (08:43)
[2022-01-10] MEDS: PredniSONE 5 MG TABLET PO SCH (08:43)
[2022-01-10] MEDS: OMEPRAZOLE 20 MG CAPSULE PO SCH (08:43)
[2022-01-10] MEDS: SERTRALINE HCL 100 MG TABLET PO SCH (08:43)
[2022-01-10] MEDS: MULTIVITAMINS WITH MINERALS, THERAPEUTIC TABLET PO SCH (08:43)
[2022-01-10] MEDS: THIAMINE 100 MG TABLET PO SCH ×2 (08:43→17:08)
[2022-01-10] MEDS: FOLIC ACID 1 MG TABLET PO SCH (08:44)
[2022-01-10 09:00] VITALS: BP 140/74
[2022-01-10] MEDS: GuaiFENesin/D-METHORPHAN [SUGAR-FREE] 200-20MG/10 ML SYRUP UDCUP PO PRN ×2 (09:35→18:32)
[2022-01-10 11:46] LABS: GLUCOMETER DEV NAME(LOC) 3E.C; GLUCOSE,POINT OF CARE 128 MG/DL (70-110)
[2022-01-10] MEDS ORDERED: OLAN10TA26 PO (15:05)
[2022-01-10] MEDS ORDERED: NALT50TA PO (15:05)
[2022-01-10 16:56] LABS: GLUCOMETER DEV NAME(LOC) 3E.C; GLUCOSE,POINT OF CARE 156 MG/DL (70-110)
[2022-01-10] MEDS: INSULIN LISPRO 100 UNITS/ML SQ PRN ×2 (17:45→20:50)
[2022-01-10 17:51] VITALS: BP 122/67
[2022-01-10 20:26] LABS: GLUCOMETER DEV NAME(LOC) 3E.C; GLUCOSE,POINT OF CARE 166 MG/DL (70-110)
[2022-01-10] MEDS: MELATONIN 5 MG TABLET PO SCH (20:49)
[2022-01-10] MEDS: DIVALPROEX SODIUM 500 MG ER TABLET PO SCH (20:49)
[2022-01-10] MEDS: ATORVASTATIN CALCIUM 40 MG TABLET PO SCH (20:50)
[2022-01-10] MEDS: OLANZapine 10 MG RAPDIS TABLET PO SCH (20:50)
[2022-01-11] MEDS: MetFORMIN HCL 500 MG TABLET PO SCH (06:34)
[2022-01-11] MEDS: CINACALCET HCL 30 MG TABLET PO SCH (06:34)
[2022-01-11 06:36] LABS: GLUCOMETER DEV NAME(LOC) 3E.C; GLUCOSE,POINT OF CARE 102 MG/DL (70-110)
[2022-01-11] MEDS: TACROLIMUS 1 MG CAPSULE PO SCH ×2 (08:38→16:15)
[2022-01-11] MEDS: OMEPRAZOLE 20 MG CAPSULE PO SCH (08:38)
[2022-01-11] MEDS: THIAMINE 100 MG TABLET PO SCH ×2 (08:39→16:15)
[2022-01-11] MEDS: FOLIC ACID 1 MG TABLET PO SCH (08:39)
[2022-01-11] MEDS: MULTIVITAMINS WITH MINERALS, THERAPEUTIC TABLET PO SCH (08:39)
[2022-01-11] MEDS: DOCUSATE SODIUM 250 MG CAPSULE PO SCH (08:39)
[2022-01-11] MEDS: MYCOPHENOLATE MOFETIL 250 MG CAPSULE PO SCH ×2 (08:39→16:15)
[2022-01-11] MEDS: OMEGA-3/DHA/EPA/FISH OIL 1,000 MG CAPSULE PO SCH (08:39)
[2022-01-11] MEDS: PredniSONE 5 MG TABLET PO SCH (08:39)
[2022-01-11] MEDS: CARVEDILOL 3.125 MG TABLET PO SCH (08:39)
[2022-01-11] MEDS: SERTRALINE HCL 100 MG TABLET PO SCH (08:40)
[2022-01-11 10:47] VITALS: BP 149/94
[2022-01-11 11:11] LABS: GLUCOMETER DEV NAME(LOC) 3E.C; GLUCOSE,POINT OF CARE 99 MG/DL (70-110)
[2022-01-11 16:36] LABS: GLUCOMETER DEV NAME(LOC) 3E.C; GLUCOSE,POINT OF CARE 233 MG/DL (70-110)
[2022-01-11] MEDS: INSULIN LISPRO 100 UNITS/ML SQ PRN (16:59)
[2022-01-11 17:00] VITALS: BP 109/57
== END 2022-01-11 18:20 | disposition home or self-care (01) | DRG 750 ==
LOC: EMS 19:46 → B3A 01-02 01:47 → 3EC 01-02 12:17 → B3A 01-02 18:05 → 3EC 01-02 18:09
PROVIDERS: ADMIT Psychiatry & Neurology Psychiatry; ATTEND Psychiatry & Neurology Psychiatry
DX: F25.1 Schizoaffective disorder, depressive type (principal); D63.1 Anemia in chronic kidney disease; E11.22 Type 2 diabetes mellitus with diabetic chronic kidney disease; Z91.14 Patient's other noncompliance with medication regimen; F41.9 Anxiety disorder, unspecified; E03.9 Hypothyroidism, unspecified; E78.5 Hyperlipidemia, unspecified; E83.52 Hypercalcemia; K59.00 Constipation, unspecified; G47.33 Obstructive sleep apnea (adult) (pediatric); K21.9 Gastro-esophageal reflux disease without esophagitis; N18.9 Chronic kidney disease, unspecified; I12.9 Hypertensive chronic kidney disease with stage 1 through stage 4 chronic kidney disease, or unspecified chronic kidney disease; Z20.822 Contact with and (suspected) exposure to COVID-19; Z55.9 Problems related to education and literacy, unspecified; Z59.9 Problem related to housing and economic circumstances, unspecified; Z63.9 Problem related to primary support group, unspecified; Z65.3 Problems related to other legal circumstances; Z79.899 Other long term (current) drug therapy; Z94.0 Kidney transplant status
CPT/HCPCS: 80048; 80053; 80061; 80074; 80197; 81003; 82962; 83036; 83735; 84100; 84439; 84443; 85025; 86592; 90686; 99285; G0480; J1200; J1630; J7507; J7517; Q9967